=== PATIENT | male | born 1950 | race Caucasian/White ===

== ENCOUNTER 2019-11-08 08:02 | Emergency (ER) | payer MEDICARE ==
[2019-11-08 08:41] LABS: #Lymphocytes 1.1 thou/uL (1.20-3.40); #Monocytes 0.4 thou/uL (0.11-0.59); #Neutrophils 2.3 thou/uL (1.40-6.50); %Basophils 0.9 % (0.0-1.0); %Eosinophils 0.2 % (0.0-10.0); %Lymphocytes 28.7 % (21.0-51.0); %Monocytes 9.4 % (0.0-10.0); %Neutrophils 60.8 % (42.0-75.0); Hemoglobin 12.5 g/dL (14.0-18.0); Mean Corpuscular HGB CONC 33.2 g/dL (32.0-36.0); Mean Corpuscular Hemoglobin 31.7 pg (27.0-31.0); Mean Corpuscular Volume 95.5 fL (78.0-98.0); Mean Platelet Volume 8.4 fL (7.4-10.4); Platelet Count 131 thou/uL (130-400); RBC Distribution Width 12.3 % (11.5-14.5); Red Blood Cell (RBC) Count 3.94 mill/uL (4.70-6.10); White Blood Cell (WBC) Count 3.8 thou/uL (4.8-10.8)
[2019-11-08 08:56] LABS: PTT 25.6 SEC (22.9-36.1)
[2019-11-08 09:04] LABS: ALT (SGPT) 19 U/L (8-55); AST (SGOT) 32 U/L (5-34); Albumin 4.1 g/dL (3.4-4.8); Alkaline Phosphatase 38 U/L (40-110); Anion Gap 11 mmol/L (10-20); BUN (Urea Nitrogen) 21 mg/dL (8.4-25.7); Bilirubin, Total 0.7 mg/dL (0.2-1.2); Calc. Creatinine Clearance 0 mL/min (70-130); Calcium 9.2 mg/dL (7.8-10.44); Carbon Dioxide 26 mmol/L (23-31); Chloride 107 mmol/L (98-107); Estimated GFR-MDRD 71; Globulin 2.5 g/dL (2.4-3.5); Glucose 100 mg/dL (80-115); Protein, Total 6.6 g/dL (5.8-8.1); Sodium 139 mmol/L (136-145)
[2019-11-08] MEDS ORDERED: Tranexamic Acid 1,000 MG/10 ML VIAL ONE (09:48)
== END 2019-11-08 10:10 | disposition home or self-care (01) ==
LOC: ERS 08:02
DX: K06.8 Other specified disorders of gingiva and edentulous alveolar ridge (principal); E78.5 Hyperlipidemia, unspecified; E78.00 Pure hypercholesterolemia, unspecified; I10 Essential (primary) hypertension; Z79.899 Other long term (current) drug therapy; Z79.82 Long term (current) use of aspirin
CPT/HCPCS: 36415; 80053; 85025; 85610; 85730; 99283

== ENCOUNTER 2020-06-13 05:25 | Emergency (ER) | payer MEDICARE ==
[2020-06-13 06:11] LABS: #Lymphocytes 0.8 thou/uL (1.20-3.40); #Monocytes 0.4 thou/uL (0.11-0.59); #Neutrophils 3.5 thou/uL (1.40-6.50); %Basophils 0.4 % (0.0-1.0); %Eosinophils 0.3 % (0.0-10.0); %Lymphocytes 17.1 % (21.0-51.0); %Monocytes 7.9 % (0.0-10.0); %Neutrophils 74.3 % (42.0-75.0); Hemoglobin 12.8 g/dL (14.0-18.0); Mean Corpuscular Hemoglobin 32.4 pg (27.0-31.0); Mean Corpuscular Volume 95.4 fL (78.0-98.0); Mean Platelet Volume 8.1 fL (7.4-10.4); Platelet Count 155 thou/uL (130-400); RBC Distribution Width 11.8 % (11.5-14.5); Red Blood Cell (RBC) Count 3.95 mill/uL (4.70-6.10); White Blood Cell (WBC) Count 4.7 thou/uL (4.8-10.8)
[2020-06-13 06:37] LABS: ALT (SGPT) 22 U/L (8-55); AST (SGOT) 38 U/L (5-34); Albumin 4.1 g/dL (3.4-4.8); Alkaline Phosphatase 48 U/L (40-110); Anion Gap 14 mmol/L (10-20); BUN (Urea Nitrogen) 22 mg/dL (8.4-25.7); Bilirubin, Total 0.9 mg/dL (0.2-1.2); Calc. Creatinine Clearance 0 mL/min (70-130); Calcium 8.9 mg/dL (7.8-10.44); Carbon Dioxide 23 mmol/L (23-31); Chloride 106 mmol/L (98-107); Estimated GFR-MDRD 72; Globulin 2.7 g/dL (2.4-3.5); Glucose 101 mg/dL (83-110); Potassium 4.1 mmol/L (3.5-5.1); Protein, Total 6.8 g/dL (5.8-8.1); Sodium 139 mmol/L (136-145)
[2020-06-13] MEDS ORDERED: cefTRIAXone\\ROCEPHIN 1 GM VIAL ONE (06:48)
[2020-06-13] MEDS ORDERED: Azithromycin 250 MG TAB ONE (06:48)
[2020-06-13] MEDS ORDERED: Lidocaine 1% (PF) 30 ML VIAL ONE (06:48)
--- NOTE | 2020-06-13 08:58 | RAD ---
SINGLE VIEW OF THE CHEST: COMPARISON: 07/04/2019. HISTORY: Recent COVID test that was negative. The patient has shortness of breath and difficulty breathing wh en lying down. FINDINGS: A single view of the chest shows an enlarged cardiomediastinal silhouette. The patient is status pos t sternotomy. Increased interstitial lung markings are seen in the lung bases. No pneumothorax is s een. There is no evidence of pleural effusion. There is a linear opacity in the right lung base whi ch may represent atelectasis or a right basilar infiltrate. Degenerative changes are seen in the spi ne. IMPRESSION: 1. Cardiomegaly. 2. Right basilar atelectasis versus infiltrate. POS: EAA
== END 2020-06-13 07:02 | disposition home or self-care (01) ==
LOC: ERS 05:25
DX: J18.9 Pneumonia, unspecified organism (principal); E78.5 Hyperlipidemia, unspecified; E78.00 Pure hypercholesterolemia, unspecified; I10 Essential (primary) hypertension; Z79.899 Other long term (current) drug therapy; Z79.82 Long term (current) use of aspirin
CPT/HCPCS: 36415; 71045; 80053; 83880; 84484; 85025; 93005; 96372; J0696; J2001